=== PATIENT | female | born 1955 | race Caucasian/White ===

== ENCOUNTER → 2021-11-28 | Outpatient (CLI) | payer BC ==
[~2021-11-28] MED LIST: AMLODIPINE BESYL5 MG PO; CALCIUM PO; LEXAPRO10 MG PO; MAGNESIUM OXID400 MG PO; MELATONIN3 MG PO; PREVACID15 MG PO; SIMVASTATIN20 MG PO; [UNRECOGNIZED DRUG - OTHER] PO
== END ==
LOC: MRI 10:51
PROVIDERS: ATTEND Specialist
DX: S83.241D Other tear of medial meniscus, current injury, right knee, subsequent encounter (principal)

== ENCOUNTER → 2021-12-18 | Day surgery (SDC) | payer BC ==
[~2021-12-18] MED LIST changes: +FENTANYL CITRATE/PF 100MCG/2 ML INJ ONE; +GABAPENTIN300 MG PO; +OMEPRAZOLE40 MG PO; +POTASSIUM PO
[2021-12-18 11:45] VITALS: BP 125/75
== END | disposition home or self-care (01) ==
LOC: OR 08:02
PROVIDERS: ATTEND Specialist
DX: S83.241A Other tear of medial meniscus, current injury, right knee, initial encounter (principal); S83.281A Other tear of lateral meniscus, current injury, right knee, initial encounter; M22.41 Chondromalacia patellae, right knee; M65.9 Synovitis and tenosynovitis, unspecified; I10 Essential (primary) hypertension; K21.9 Gastro-esophageal reflux disease without esophagitis; F41.9 Anxiety disorder, unspecified; X50.1XXA Overexertion from prolonged static or awkward postures, initial encounter; Z88.8 Allergy status to other drugs, medicaments and biological substances; Z01.810 Encounter for preprocedural cardiovascular examination; Z01.812 Encounter for preprocedural laboratory examination; Z20.822 Contact with and (suspected) exposure to COVID-19; Z79.899 Other long term (current) drug therapy; Z68.30 Body mass index [BMI] 30.0-30.9, adult
CPT/HCPCS: 29880; 93005; J0690; J3010; U0002

== ENCOUNTER 2024-10-19 10:01 | Emergency (ER) | payer MEDICARE, BC ==
[~2024-10-19] VITALS: Ht 172.7 cm; Wt 90.7 kg
[~2024-10-19 10:01] MED LIST changes: -FENTANYL CITRATE/PF 100MCG/2 ML INJ ONE
[2024-10-19 13:42] LABS: BASOPHILS # (AUTO) 0.1 (0.0-0.1); BASOPHILS % 0.6 % (0.0-1.0); EOSINOPHILS # (AUTO) 0.1 (0.0-0.4); EOSINOPHILS % 0.4 % (0.0-6.0); HEMATOCRIT 41.9 % (34.2-44.1); HEMOGLOBIN 13.6 g/dL (12.0-16.0); LYMPHOCYTES # (AUTO) 2.2 (1.0-3.2); LYMPHOCYTES % 17.6 % (18.0-39.1); MEAN CORPUSCULAR HEMOGLOBIN 29.9 pg (28-32); MEAN CORPUSCULAR HGB CONC 32.5 g/dL (31-35); MEAN CORPUSCULAR VOLUME 92.1 fL (81-99); MONOCYTES % 7.9 % (4.4-11.3); NEUTROPHILS # (AUTO) 9.2 (2.1-6.9); NEUTROPHILS % 73.2 % (38.7-80.0); PLATELET COUNT 250 x10e3/uL (140-360); RED BLOOD COUNT 4.55 x10e6/uL (3.6-5.1); RED CELL DISTRIBUTION WIDTH 13.2 % (11.7-14.4); WHITE BLOOD COUNT 12.53 x10e3/uL (4.8-10.8)
[2024-10-19 13:46] LABS: INR 1.03; PROTHROMBIN TIME 14.1 seconds (11.9-14.5)
[2024-10-19 13:47] LABS: PARTIAL THROMBOPLASTIN TIME 34.5 seconds (23.8-35.5)
[2024-10-19] MEDS: SODIUM CHLORIDE 0.9% 1000ML 2,720 ML IV SCH (13:51)
[2024-10-19] MEDS: ACETAMINOPHEN 325 MG TAB PO ONE (13:51)
[2024-10-19 13:55] LABS: BILIRUBIN,URINE SMALL (NEGATIVE); CLARITY,URINE CLEAR (CLEAR); COLOR,URINE AMBER (YELLOW); GLUCOSE, URINE NEGATIVE (NEGATIVE); KETONES,URINE NEGATIVE (NEGATIVE); LEUKOCYTE ESTERASE ,URINE NEGATIVE (NEGATIVE); NITRITE,URINE NEGATIVE (NEGATIVE); PH,URINE 6.5 (5 - 7); PROTEIN,URINE DIPSTICK 2+ (NEGATIVE); URINE UROBILINOGEN 1 mg/dL (0.2 - 1)
[2024-10-19 13:56] LABS: ALBUMIN 3.7 g/dL (3.5-5.0); ALBUMIN/GLOBULIN RATIO 1.1 (0.8-2.0); ANION GAP 12.8 mmol/L (8-16); BILIRUBIN,TOTAL 1.2 mg/dL (0.2-1.2); CALCIUM 9.9 mg/dL (8.4-10.2); CREATININE, SERUM 0.76 mg/dL (0.57-1.11); POTASSIUM 3.8 mmol/L (3.5-5.1); TOTAL PROTEIN 7.2 g/dL (6.5-8.1)
[2024-10-19 13:57] LABS: RBC,URINE 21-50 /HPF (0-5); WBC,URINE (MAN) 0-5 /HPF (0-5)
[2024-10-19 13:58] LABS: BACTERIA,URINE MODERATE /HPF; EPITHELIAL CELLS,URINE MODERATE /LPF; MUCUS,URINE MANY
[2024-10-19] MEDS ORDERED: IOPAMIDOL 370 MG/ML 100 ML INFUS..BTL INJ ONE (14:04)
[2024-10-19] MEDS: KETOROLAC TROMETHAMINE 30 MG/ML VIAL IV STA (15:01)
[2024-10-19 15:02] VITALS: PULSE 69; RESP 16; TEMP 99.4; O2SAT 97
[2024-10-19] MEDS: DICYCLOMINE HCL 20 MG/2 ML VIAL IM ONE (15:02)
[2024-10-19] MEDS ORDERED: CEFDINIR300 MG PO (15:45)
== END 2024-10-19 16:03 | disposition home or self-care (01) ==
LOC: ER 13:20
DX: R50.9 Fever, unspecified (principal); N39.0 Urinary tract infection, site not specified; R10.31 Right lower quadrant pain; I10 Essential (primary) hypertension; E78.5 Hyperlipidemia, unspecified; K76.9 Liver disease, unspecified; K21.9 Gastro-esophageal reflux disease without esophagitis; F41.9 Anxiety disorder, unspecified; F32.A Depression, unspecified
CPT/HCPCS: 36415; 71045; 74177; 80053; 81001; 83605; 85025; 85610; 85730; 87040; 87086; 93005; 99284; J0500; J1885; Q9967